=== PATIENT | female | born 1980 | race Caucasian/White ===

== ENCOUNTER 2019-05-23 16:57 | Emergency (ER) | payer BC ==
[2019-05-23 17:20] VITALS: BP 168/98
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
== END 2019-05-23 17:38 | disposition home or self-care (01) ==
LOC: UCCORT 16:57
DX: H60.91 Unspecified otitis externa, right ear (principal); F17.210 Nicotine dependence, cigarettes, uncomplicated; Z88.8 Allergy status to other drugs, medicaments and biological substances; Z88.5 Allergy status to narcotic agent; Z88.0 Allergy status to penicillin
CPT/HCPCS: 99212; G0463